=== PATIENT | male | born 1965 | race Caucasian/White ===

== ENCOUNTER → 2020-09-17 07:45 | Outpatient (CLI) | payer OTHER, SELFPAY ==
--- NOTE | ~2020-09-17 | MR_ITS ---
EXAMINATION: MR knee RT wo con DATE: 09/17/2020 08:38 INDICATION: Chronic right knee pain TECHNIQUE: Magnetic resonance imaging (MRI) of the right knee was performed without intravenous contr ast. Sequences included coronal PD-weighted FSE, coronal PD-weighted FS FSE, sagittal T2-weighted FS E, sagittal PD-weighted FS FSE and axial PD weighted fat saturated FSE. COMPARISON: None. FINDINGS: Medial compartment: Complex medial meniscal tear with a full-thickness paired beak configuration tear at the posterior ho rn, the configuration of which can be clearly seen on axial series 4, image 18 there is an additional small tear of indeterminate morphology most likely a longitudinal horizontal tear which contacts the inferior articular surface on the inner third of the posterior meniscal body. Partial-thickness sharee dral fissuring without degenerative subchondral changes at the anterior weightbearing medial femoral condyle. Deeper fall/near full-thickness chondral fissuring with underlying subarticular edema at the central aspect of the weightbearing medial femoral condyle. Lateral compartment: Lateral meniscus is normal. Partial-thickness chondral fissuring/fibrillation without degenerative mike bchondral changes at the posterior third of the lateral tibial plateau. Cartilage along the weightbea ring lateral femoral condyle is normal. Patellofemoral compartment: Deep chondral fissuring/fibrillation with subarticular cystic change and edema extending across the m edial to the lateral patellar facet. Trochlear cartilage is normal. Ligaments and tendons: Anterior and posterior cruciate ligaments are normal. The medial collateral ligament and fibular max ateral ligament complex are normal. Distal quadriceps tendinopathy without discrete tear. There are b ands of magic angle artifact extending across the normal patellar tendon. The visualized medial and l ateral hamstring tendons as well as the iliotibial band are normal. Fluid: Moderate-sized right knee joint effusion with mild synovitis at the suprapatellar pouch. No loose ost eochondral bodies identified. Small Bautista's cyst. Osseous/other: Normal marrow signal. No fracture or pathologic marrow replacing process. IMPRESSION: 1. Complex medial meniscal tear including a full-thickness parrot beak configuration tear of the post erior horn. 2. 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 3. Moderate-sized right knee joint effusion and small Bautista's cyst. Reviewed, dictated and finalized at location A. IMPRESSION: 1. Complex medial meniscal tear including a full-thickness parrot beak configur ation tear of the posterior horn. 2. Mild tricompartmental osteoarthritis with regions of high-grade chondromalac ia at the patella and weightbearing medial femoral condyle and moderate grade c hondromalacia the lateral tibial plateau. 3. Moderate-sized right knee joint effusion and small Bautista's cyst.
== END ==
PROVIDERS: PCP Student in an Organized Health Care Education/Training Program; Visit Provider Student in an Organized Health Care Education/Training Program
DX: M17.11 Unilateral primary osteoarthritis, right knee (principal); M25.461 Effusion, right knee; M71.21 Synovial cyst of popliteal space [Baker], right knee; S83.231A Complex tear of medial meniscus, current injury, right knee, initial encounter; X58.XXXA Exposure to other specified factors, initial encounter
CPT/HCPCS: 73721

== ENCOUNTER 2021-07-16 00:04 | Day surgery (SDC) | payer OTHER, SELFPAY ==
[2021-07-01 14:43] VITALS: BMI 25.2
--- NOTE | 2021-07-15 16:41 | PM.HPGS ---
History of Present Illness History of Present Illness Consent: Risks, benefits, and alternatives have been discussed and questions answered. Patient agrees to proceed with procedure. Chief complaint: hx of colon polyps Narrative: Ashutosh Haq is a 56 year old male Here for colon cancer screening. He had several polyps removed about 7 years ago. Review of Systems Review of Systems: All systems reviewed & are unremarkable except as noted in HPI and below PMFSH Family History Family History Mother Family history of lung cancer, Onset Age: 64 Social History Social History Smoking status: Never smoker Alcohol intake: never Living arrangements: with family Spiritual care concerns: No Meds Home Medications and Allergies Home Medications Medication Instructions Recorded Confirmed Type doxazosin 4 mg tablet,extended 1 tablet PO DAILY 07/01/21 07/01/21 History release 24 hr (Cardura XL) naproxen 500 mg tablet 1 tablet PO BID 07/01/21 07/01/21 History Allergies Allergy/AdvReac Type Severity Reaction Status Date / Time DOESN'T KNOW NAME OF IT WAS AdvReac Intermediate NAUSEA Uncoded 07/16/21 06:45 FOR PROBLEMS URINATING AFTER VOMITING MARSHALL Exam Resp: Auscultation: clear to auscultation bilaterally Cardio: Rate: regular rate Rhythm: regular rhythm GI: GI Palp: Yes Soft to palpation and No Tenderness to palpation present (GI) Assessment and Plan Assessment and plan (1) Colon cancer screening: Code(s): Z12.11 - Encounter for screening for malignant neoplasm of colon Status: Acute Assessment and Plan: Colonoscopy with possible biopsy or polypectomy or cautery or injection of substances.
[2021-07-16 06:46] VITALS: BP 93/55; PULSE 66; RESP 18; TEMP 36.4; O2SAT 100
[2021-07-16] MEDS: LACTATED RINGERS 1,000 ML 150 ML IV CONT (06:58)
--- NOTE | 2021-07-16 07:35 | WPDANESEPPF ---
Anes - Initial Pre Proc Eval Procedure: Operation Date: 07/16/21 08:00 Proposed Procedures p Screening Colonoscopy - Yoni Cuevas MD Date/Time: 07/16/21 07:35 Surgeon: Yoni Cuevas MD Pre Op Diagnosis: hx of colon polyps Patient Data Age: 56 Gender: M Height: 1.88 m Weight: 84.5 kg Last Vital Signs Temp 97.5 F L 07/16/21 06:46 Pulse 66 07/16/21 06:46 Resp 18 07/16/21 06:46 BP 93/55 L 07/16/21 06:46 Pulse Ox 100 07/16/21 06:46 O2 Del Method Room Air 07/16/21 06:46 Allergies Allergy/AdvReac Type Severity Reaction Status Date / Time DOESN'T KNOW NAME OF IT WAS AdvReac Intermediate NAUSEA Uncoded 07/16/21 06:45 FOR PROBLEMS URINATING AFTER VOMITING MARSHALL Home Medications Medication Instructions Recorded Confirmed Type doxazosin 4 mg tablet,extended 1 tablet PO DAILY 07/01/21 07/01/21 History release 24 hr (Cardura XL) naproxen 500 mg tablet 1 tablet PO BID 07/01/21 07/01/21 History Patient hx anesthesia problems: none Family hx anesthesia problems: none Results Review: All pre-operative results and documents have been reviewed as part of the pre-operative evaluation. COUNTS INCLUDE 234 BEDS AT THE [facility] Family History Family History Mother Family history of lung cancer, Onset Age: 64 Social History Social History Smoking status: Never smoker Alcohol intake: never Living arrangements: with family Spiritual care concerns: No Anes - Eval Final PreProcedure Day of Procedure 07/16/21 07:35 Patient weight: normal Heart: regular rate and rhythm Lungs: clear to auscultation Airway: Mallampati scale class II Neurological: alert and oriented Last oral intake: >/= 8 hours ASA classification: II Emergent: no Anesthetic plan: proceed Anesthesia type and monitoring: general GIVS and standard monitoring Results Review: All pre-operative results and documents have been reviewed as part of the pre-operative evaluation. Informed Consent: The patient's anesthetic plan and its attendant risks and benefits were discussed with the patient/family/POA. Questions were solicited and answers provided to the satisfaction of the patient/family/POA.
[2021-07-16 08:25] VITALS: BP 81/54; PULSE 59; RESP 15; O2SAT 100
[2021-07-16 08:35] VITALS: BP 99/70; PULSE 65; RESP 19; O2SAT 100
[2021-07-16 08:45] VITALS: BP 113/84; PULSE 57; RESP 18; O2SAT 100
== END 2021-07-16 08:54 | disposition home or self-care (01) ==
PROVIDERS: PCP Student in an Organized Health Care Education/Training Program; Visit Provider Internal Medicine Gastroenterology
PROC: 0DJD8ZZ Inspection of Lower Intestinal Tract, Via Natural or Artificial Opening Endoscopic (ICD-10-PCS; CPT 45378; principal; 2021-07-16 08:00)
DX: Z12.11 Encounter for screening for malignant neoplasm of colon (principal); K57.30 Diverticulosis of large intestine without perforation or abscess without bleeding; Z86.010 Personal history of colon polyps
CPT/HCPCS: 45378; J2704; J7120